=== PATIENT | female | born 1980 | race Caucasian/White ===

== ENCOUNTER 2016-08-31 05:59 | Day surgery (SDC) | payer OTHER ==
[~2016-08-31] VITALS: Ht 154.9 cm; Wt 72.1 kg
[2016-08-31] MEDS ORDERED: LIDOCAINE 1% 50 ML ONE (07:19)
[2016-08-31] MEDS ORDERED: BUPIVACAINE-MPF/EPI 0.25% 30 ML VIAL INJ ONE (07:19)
[2016-08-31] MEDS ORDERED: PROPOFOL 200 MG/20 ML VIAL IV ONE ×2 (08:13→09:22)
[2016-08-31] MEDS ORDERED: DEXAMETHASONE 4 MG/ML VIAL IVP ONE ×2 (08:13→09:22)
[2016-08-31] MEDS ORDERED: SEVOFLURANE 250 ML BTL INH ONE ×2 (08:13→09:22)
[2016-08-31] MEDS ORDERED: ONDANSETRON 4 MG/2 ML VIAL IVP ONE ×2 (08:13→09:22)
[2016-08-31] MEDS ORDERED: fentaNYL 0.05 MG/ML VIAL ONE (08:19)
[2016-08-31] MEDS ORDERED: HYDROmorphone 1 MG/ML AMP IVP PRN ×2 (08:40→09:20)
[2016-08-31] MEDS ORDERED: ONDANSETRON 4 MG/2 ML VIAL IVP PRN (08:40)
[2016-08-31] MEDS ORDERED: MORPHINE SULFATE 2 MG/ML SYR IVP PRN (09:20)
[2016-08-31] MEDS ORDERED: HYDROcodone/APAP 5/325 MG 1 TAB TAB PO PRN (09:20)
[2016-08-31] MEDS ORDERED: KETOROLAC 30 MG/ML VIAL IVP ONE (09:22)
[2016-08-31] MEDS ORDERED: ONDANSETRON 4 MG/2 ML VIAL IV PRN (10:00)
[2016-08-31] MEDS ORDERED: MORPHINE SULFATE 4 MG/ML SYR IV PRN (10:00)
== END 2016-08-31 10:45 | disposition home or self-care (01) ==
LOC: MDS 05:59 → MMU 06:01 → MDS 10:45
PROVIDERS: ATTEND Surgery
DX: D17.0 Benign lipomatous neoplasm of skin and subcutaneous tissue of head, face and neck (principal); K21.9 Gastro-esophageal reflux disease without esophagitis; Z90.10 Acquired absence of unspecified breast and nipple
CPT/HCPCS: 21556; 71010; J0690; J2001; J3010; J3490; J7060; J7120

== ENCOUNTER 2018-07-02 11:45 | Emergency (ER) | payer OTHER ==
[~2018-07-02] VITALS: Ht 157.5 cm; Wt 75.3 kg
[2018-07-02 12:00] VITALS: BP 148/95
--- NOTE | 2018-07-02 12:04 | NUR ---
Patient ambulated to bed 8 with family. RN evaluating patient at bedside.
--- NOTE | 2018-07-02 13:16 | NUR ---
37 Y/O F W/C/P COUGH, CONGESTION, AND FATIGUE ASSOCIATED WITH BODY ACHES X 1 WEEK. TAKING AMOXICILLIN X 2 DAYS. PT DENIES N/V/D; AAOX4, PERRL, WITH EVEN AND STEADY GAIT; BREATHING UNLABORED; HR EVEN AND REGULAR, BL PERIPHERAL PULSES PRESENT; BS ACTIVE X4, NO TENDERNESS TO PALPATION, NO HEPATOSPLENOMEGALLY PALPATED, RESONANT TO PERCUSSION; PT DENIES ANY FEVER, CP, SOB, OR COUGH AT THIS TIME; PT STATES 8/10 PAIN AT THIS TIME; VSS; PATIENT POSITIONED FOR COMFORT; HOB ELEVATED; BEDRAILS UP X2; BED DOWN.
[2018-07-02] MEDS ORDERED: PROMETHAZINE 25 MG/ML VIAL IM ONE (13:25)
[2018-07-02] MEDS ORDERED: cefTRIAXone 1,000 MG in LIDOCAINE 1% ***ER ONLY *** 2.1 ML IM ONE (13:25)
[2018-07-02] MEDS ORDERED: ALBUTEROL SULFATE/IPRATROPIU 3 ML SOL IH ONE (13:25)
[2018-07-02] MEDS ORDERED: DEXAMETHASONE 10 MG/ML VIAL IM ONE (13:25)
--- NOTE | 2018-07-02 13:30 | NUR ---
ASSUMED CARE OF PT FROM ROCK BLOUNT AT THIS TIME.
[2018-07-02] MEDS ORDERED: cefTRIAXone 1,000 MG VIAL ONE (13:37)
[2018-07-02] MEDS ORDERED: LIDOCAINE MPF 1% - 5 mL VIAL 5 ML ONE (13:43)
--- NOTE | 2018-07-02 13:46 | NUR ---
RT CALLED AT THIS TIME.
--- NOTE | 2018-07-02 13:47 | NUR ---
INFLUENZA SWAB TAKEN TO LAB AT THIS TIME.
--- NOTE | 2018-07-02 15:46 | NUR ---
Received report from Veronica BLOUNT; Assumed care of patient
[2018-07-02 16:55] VITALS: BP 148/95
--- NOTE | 2018-07-02 16:56 | NUR ---
Patient discharged with v/s stable. Written and verbal after care instructions given and explained. Patient alert, oriented and verbalized understanding of instructions. Ambulatory with steady gait. All questions addressed prior to discharge. ID band removed. Patient advised to follow up with PMD. Rx of AZITHROMYCIN, PROMETHAZINE, AND PREDNISONE given. Patient educated on indication of medication including possible reaction and side effects. Opportunity to ask questions provided and answered.
== END 2018-07-02 16:55 | disposition home or self-care (01) ==
LOC: MED 11:45
DX: J32.9 Chronic sinusitis, unspecified (principal); J40 Bronchitis, not specified as acute or chronic; J11.1 Influenza due to unidentified influenza virus with other respiratory manifestations
CPT/HCPCS: 36415; 71045; 87804; 94640; 96372; 99284; J0696; J1100; J2001; J2550; J7620; Q0092